=== PATIENT | male | born 1985 | race Caucasian/White ===

== ENCOUNTER 2017-03-21 08:10 | Emergency (ER) | payer SELFPAY ==
[2017-03-21 09:36] VITALS: BP 125/76
== END 2017-03-21 09:36 | disposition home or self-care (01) ==
LOC: ED 08:10
DX: S23.3XXA Sprain of ligaments of thoracic spine, initial encounter (principal); S13.9XXA Sprain of joints and ligaments of unspecified parts of neck, initial encounter; S50.02XA Contusion of left elbow, initial encounter; V49.3XXA Car occupant (driver) (passenger) injured in unspecified nontraffic accident, initial encounter; Y93.89 Activity, other specified; Y99.8 Other external cause status; Y92.89 Other specified places as the place of occurrence of the external cause
CPT/HCPCS: Q0092